=== PATIENT | male | born 1990 | race African-American/Black ===

== ENCOUNTER 2021-12-10 17:18 | Emergency (ER) | payer OTHER, MEDICAID ==
[~2021-12-10] VITALS: Ht 177.8 cm; Wt 77.1 kg
[2021-12-10 18:29] LABS: Basophils # (auto) 0 10 ^3/uL (0-0.2); Basophils % (auto) 0.7 % (0.0-2.0); Eosinophils # (auto) 0.1 10 ^3/uL (0-0.8); Eosinophils % (auto) 1.2 % (0.0-7.0); Hematocrit 45.8 % (41.0-53.0); Hemoglobin 15.6 g/dL (13.5-17.5); Lymphocytes % (auto) 31.9 % (10.0-50.0); Mean Corpuscular Hemoglobin 32.5 pg (28.0-32.0); Mean Corpuscular Hgb Conc. 34.1 g/dL (32.0-36.0); Mean Corpuscular Volume 95.2 fL (80.0-100.0); Monocytes # (auto) 0.3 10 ^3/uL (0-1.3); Neutrophils # (auto) 3.9 10 ^3/uL (1.6-8.6); Neutrophils % (auto) 61.2 % (37.0-80.0); Nucleated Red Blood Cells % 0.2 %; Red Blood Cells 4.82 10^6/uL (4.5-5.90); Red Cell Distribution Width 12.3 % (11.8-14.3); White Blood Cell 6.3 10^3/uL (4.4-10.8)
[2021-12-10 18:49] LABS: Albumin 3.5 g/dL (3.4-5.0); Anion Gap 6 (5-15); Blood Alcohol < 3.0 mg/dL (0-5); Blood Urea Nitrogen 7 mg/dL (7-18); Calcium 8.8 mg/dL (8.5-10.1); Carbon Dioxide 26 mmol/L (21-32); Chloride 113 mmol/L (98-107); Glucose 95 mg/dL (74-106); Potassium 3.8 mmol/L (3.5-5.1); Sodium 145 mmol/L (136-145)
[2021-12-10 18:52] LABS: Alanine Aminotransferase 21 U/L (16-61); Alkaline Phosphatase 85 U/L (45-117); Aspartate Aminotransferase 20 U/L (15-37); BUN/Creatinine Ratio 7.4; Bilirubin, Total 0.5 mg/dL (0.2-1.0); GFR African American 119 mL/min; GFR Non-African American 98 mL/min; Total Protein 6.8 g/dL (6.4-8.2)
[2021-12-10 19:00] LABS: Salicylate < 1.7 mg/dL (2.8-20.0)
[2021-12-10 19:07] LABS: Acetaminophen < 2.0 ug/mL (10-30)
[2021-12-10 21:07] LABS: Alcohol, Urine < 3.0 mg/dL (0-10); Amphetamine Screen, Urine NEGATIVE (NEGATIVE); Barbiturate Scree,Urine NEGATIVE (NEGATIVE); Benzodiazephine Screen, Urine NEGATIVE (NEGATIVE); Cannabinoid Screen, Urine POSITIVE (NEGATIVE); Cocaine Screen, Urine NEGATIVE (NEGATIVE); Opiate Scree,Urine NEGATIVE (NEGATIVE); Phencyclidine Screen, Urine NEGATIVE (NEGATIVE)
[2021-12-10] MEDS ORDERED: diphenhdrAMINE HCL 50 MG/1 ML VL IM ONE (22:00)
[2021-12-10] MEDS ORDERED: HALOPERIDOL LACTATE 5 MG/ML INJ VIAL IM ONE (22:00)
[2021-12-10] MEDS ORDERED: LORazepam 2MG/ML-1ML VIAL IM ONE (22:00)
[2021-12-11] MEDS ORDERED: KETOROLAC TROMETH 30 MG/ML 1ML VIAL IV ONE (15:00)
[2021-12-11] MEDS ORDERED: METOCLOPRAMIDE HCL 5MG/ml INJ 2ml VIAL IV ONE (15:00)
[2021-12-11] MEDS ORDERED: HALOPERIDOL LACTATE 5 MG/ML INJ VIAL IM ONE (16:00)
[2021-12-11] MEDS ORDERED: LORazepam 2MG/ML-1ML VIAL IM ONE (16:00)
[2021-12-11] MEDS ORDERED: diphenhdrAMINE HCL 50 MG/1 ML VL IM ONE (16:00)
[2021-12-11] MEDS ORDERED: hydrOXYzine 25 MG TAB or CAP PO ONE (22:00)
[2021-12-12] MEDS ORDERED: LORazepam 2MG/ML-1ML VIAL IM ONE (16:30)
[2021-12-13] MEDS ORDERED: LORazepam 2MG/ML-1ML VIAL IM ONE (07:45)
[2021-12-13 17:37] VITALS: BP 116/78
== END 2021-12-13 17:38 | disposition short-term general hospital (02) ==
LOC: ER 17:18 → EDBD 17:18 → ER 12-13 17:38
DX: R45.851 Suicidal ideations (principal); F20.9 Schizophrenia, unspecified; F15.10 Other stimulant abuse, uncomplicated; F12.10 Cannabis abuse, uncomplicated; F17.210 Nicotine dependence, cigarettes, uncomplicated; Z59.00 Homelessness unspecified; Z20.822 Contact with and (suspected) exposure to COVID-19
CPT/HCPCS: 36415; 80053; 80307; 80320; 80329; 85025; 87426; 96372; 99283; J1200; J1630; J2060

== ENCOUNTER 2022-04-13 09:12 | Emergency (ER) | payer OTHER, MEDICAID ==
[~2022-04-13] VITALS: Ht 172.7 cm; Wt 54.0 kg
[2022-04-13 09:22] VITALS: BP 104/66
[2022-04-13 11:36] LABS: Basophils # (auto) 0 10 ^3/uL (0-0.2); Basophils % (auto) 0.8 % (0.0-2.0); Eosinophils # (auto) 0.1 10 ^3/uL (0-0.8); Eosinophils % (auto) 1.7 % (0.0-7.0); Hematocrit 46.8 % (41.0-53.0); Hemoglobin 15.4 g/dL (13.5-17.5); Lymphocytes # (auto) 2.2 10 ^3/uL (0.4-5.4); Lymphocytes % (auto) 35.9 % (10.0-50.0); Mean Corpuscular Hemoglobin 31.7 pg (28.0-32.0); Mean Corpuscular Volume 96.3 fL (80.0-100.0); Monocytes # (auto) 0.3 10 ^3/uL (0-1.3); Monocytes % (auto) 4.8 % (0.0-12.0); Neutrophils # (auto) 3.5 10 ^3/uL (1.6-8.6); Neutrophils % (auto) 56.8 % (37.0-80.0); Nucleated Red Blood Cells % 0.1 %; Red Blood Cells 4.86 10^6/uL (4.5-5.90); Red Cell Distribution Width 12.3 % (11.8-14.3); White Blood Cell 6.1 10^3/uL (4.4-10.8)
[2022-04-13 11:55] LABS: Albumin 3.7 g/dL (3.4-5.0); Calcium 8.6 mg/dL (8.5-10.1); Potassium 3.7 mmol/L (3.5-5.1)
[2022-04-13 11:58] LABS: BUN/Creatinine Ratio 14.4; Bilirubin, Total 0.6 mg/dL (0.2-1.0); Total Protein 6.9 g/dL (6.4-8.2)
== END 2022-04-13 13:17 | disposition home or self-care (01) ==
LOC: EDBD 09:12 → ER 09:12
DX: F20.9 Schizophrenia, unspecified (principal); F41.8 Other specified anxiety disorders; F17.210 Nicotine dependence, cigarettes, uncomplicated; Z59.00 Homelessness unspecified
CPT/HCPCS: 36415; 71046; 80053; 84484; 85025; 93005

== ENCOUNTER 2022-05-02 18:54 | Emergency (ER) | payer OTHER, MEDICAID ==
[~2022-05-02] VITALS: Ht 175.3 cm; Wt 80.0 kg
[2022-05-02 20:52] VITALS: BP 109/63
[2022-05-02] MEDS ORDERED: KETOROLAC TROMETH 30 MG/ML 1ML VIAL IM ONE (23:00)
[2022-05-03] MEDS ORDERED: OLANZapine 5 MG TAB PO ONE (08:15)
== END 2022-05-03 12:08 | disposition left against medical advice (07) ==
LOC: ER 18:54 → EDBD 18:54 → EDUNIT# 18:54 → ER 05-03 12:08
DX: S09.8XXA Other specified injuries of head, initial encounter (principal); F20.9 Schizophrenia, unspecified; F17.210 Nicotine dependence, cigarettes, uncomplicated; F12.10 Cannabis abuse, uncomplicated; F15.10 Other stimulant abuse, uncomplicated; Z59.00 Homelessness unspecified; W22.8XXA Striking against or struck by other objects, initial encounter; Y93.01 Activity, walking, marching and hiking; Y92.89 Other specified places as the place of occurrence of the external cause; Y99.8 Other external cause status
CPT/HCPCS: 70450; 71046; 96372; 99284; J1885